=== PATIENT | female | born 1995 | race Two or more races ===

== ENCOUNTER 2020-02-14 13:15 | Emergency (ER) | payer OTHER ==
[~2020-02-14] VITALS: Ht 157.5 cm; Wt 86.2 kg
[2020-02-14] MEDS ORDERED: ALBUTEROL SULF 2.5 MG/0.5ML(0.5%) NEB SOLN NEB ONE (13:45)
[2020-02-14] MEDS ORDERED: methylPREDNISolone SOD SUCC 125 MG/2 ML VL IV ONE (13:45)
[2020-02-14] MEDS ORDERED: IPRATROPIUM BROM 0.5 MG/2.5ML INH SOL NEB ONE (13:45)
[2020-02-14 13:46] LABS: Basophils # (auto) 0 10 ^3/uL (0-0.2); Basophils % (auto) 0.4 % (0.0-2.0); Eosinophils # (auto) 0.2 10 ^3/uL (0-0.8); Eosinophils % (auto) 2.6 % (0.0-7.0); Hematocrit 39.8 % (36.0-46.0); Hemoglobin 13.8 g/dL (12.2-16.2); Lymphocytes # (auto) 2.5 10 ^3/uL (0.4-5.4); Lymphocytes % (auto) 26.8 % (10.0-50.0); Mean Corpuscular Hemoglobin 29.9 pg (28.0-32.0); Mean Corpuscular Hgb Conc. 34.6 g/dL (32.0-36.0); Mean Corpuscular Volume 86.3 fL (80.0-100.0); Monocytes # (auto) 0.8 10 ^3/uL (0-1.3); Neutrophils # (auto) 5.9 10 ^3/uL (1.6-8.6); Neutrophils % (auto) 62.2 % (37.0-80.0); Platelet Count (auto) 357 10^3/uL (140-450); Red Blood Cells 4.61 10^6/uL (4.0-5.20); Red Cell Distribution Width 13.6 % (11.8-14.3); White Blood Cell 9.5 10^3/uL (4.4-10.8)
[2020-02-14 14:07] LABS: Calcium 9.3 mg/dL (8.5-10.1); Chloride 104 mmol/L (98-107); Potassium 4.6 mmol/L (3.5-5.1); Sodium 137 mmol/L (136-145)
[2020-02-14 14:10] LABS: Alanine Aminotransferase 30 U/L (13-56); Albumin 4.1 g/dL (3.4-5.0); Anion Gap 6 (5-15); BUN/Creatinine Ratio 12.7; Blood Urea Nitrogen 8 mg/dL (7-18); Carbon Dioxide 27 mmol/L (21-32); GFR African American 152 mL/min; GFR Non-African American 126 mL/min; Glucose 106 mg/dL (74-106)
[2020-02-14 14:15] LABS: Alkaline Phosphatase 103 U/L (45-117); Aspartate Aminotransferase 11 U/L (15-37); Bilirubin, Total 0.4 mg/dL (0.2-1.0); Total Protein 8.1 g/dL (6.4-8.2)
[2020-02-14 16:09] VITALS: BP 130/70
== END 2020-02-14 16:16 | disposition home or self-care (01) ==
LOC: ER 13:15
DX: R07.89 Other chest pain (principal); J45.901 Unspecified asthma with (acute) exacerbation
CPT/HCPCS: 36415; 71046; 80053; 84484; 85025; 93005; 94640; 96374; 99285; J2930; J7644